=== PATIENT | male | born 1995 | race Hispanic/Latino ===

== ENCOUNTER 2017-10-02 14:37 | Emergency (ER) | payer OTHER ==
[2017-10-02] MEDS: BUPIVACAINE HCL 0.5% 10 ML VIAL SC (16:00)
[2017-10-02] MEDS: CEPHALEXIN 500 MG CAP PO (17:19)
== END 2017-10-02 17:35 | disposition home or self-care (01) ==
LOC: M ED 14:37
DX: S68.120A Partial traumatic metacarpophalangeal amputation of right index finger, initial encounter (principal); W23.0XXA Caught, crushed, jammed, or pinched between moving objects, initial encounter; Y92.139 Unspecified place military base as the place of occurrence of the external cause; Y93.9 Activity, unspecified; Y99.1 Military activity
CPT/HCPCS: 73140

== ENCOUNTER → 2018-06-02 | Outpatient (CLI) | payer OTHER | LOC: M LRY 12:48 | DX: M25.552 Pain in left hip (principal) | CPT/HCPCS: 73521 ==